=== PATIENT | female | born 1960 | race Caucasian/White ===

== ENCOUNTER 2018-01-11 10:37 | Day surgery (SDC) | payer BC ==
[2018-01-10 09:27] VITALS: BMI 25.7
--- NOTE | 2018-01-10 11:36 | HP ---
Past Medical History - Admission Chief Complaint: Postmenopausal Bleeding. History of Present Illness: 57 year old LMP April 2016 who had sudden onset of bright red heavy bleeding with cramping on January 06, 2018. Due to persistence of bleeding was seen at Urgent care where evaluation revealed a uterus with endometrium of 11 mm. 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 Flow had subsided. Pap smear 05/22/17 negative for malignancy. Pelvic ultrasound performed 05/25/16 for episode of irregular bleeding revealed uterus 8 by 4 by 4 cm. 2.7 cm fibroid left lateral wall of uterus with endometrium normal measuring 5.6 cm. History Source: Patient Limitations to Obtaining History: No Limitations - Past Medical History ...: 3 ...Para: 2 ...Spon : 1 - Past Surgical History Hx Myomectomy: No Hx Transabdominal Cerclage: No - Smoking History Smoking history: Former smoker Have you smoked in the past 12 months: No If you are a former smoker, when did you quit?: YRS AGO - Alcohol/Substance Use Hx Alcohol Use: Yes (SOCIALLY) - Social History Usual Living Arrangement: Yes: With Spouse Home Medications - Allergies Allergies/Adverse Reactions: Allergies Allergy/AdvReac Type Severity Reaction Status Date / Time No Known Drug Allergies Allergy Verified 01/10/18 09:28 - Home Medications Home Medications: Ambulatory Orders Levothyroxine [Synthroid -] 25 mcg PO DAILY 01/10/18 Family Disease History - Family Disease History Family Disease History: Heart Disease: Father Other Family History: Maternal aunt Breast Cancer. 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 Constitutional: Yes: Well Nourished, No Distress, Calm Eyes: Yes: WNL Neck: Yes: WNL, Supple, Trachea Midline Cardiovascular: Yes: WNL, Regular Rate and Rhythm Respiratory: Yes: WNL, Regular, CTA Bilaterally Gastrointestinal: Yes: WNL, Soft Pelvis: Yes: WNL External Genitalia: Yes: Normal Internal Exam Deferred: No Vaginal Exam: Yes: Normal, Bleeding Cervix: Yes: Normal Uterus: Yes: Normal, Freely Moveable, Firm Adnexa: Normal: Bilateral Edema: No Neurological: Yes: WNL Imaging - Results Ultrasound: Report Reviewed (Uterus with endometrium 11 mm.) Assessment/Plan Postmenopausal bleeding Plan: D and C with Hysteroscopy
[2018-01-11] MEDS ORDERED: MIDAZOLAM HCL 2 MG/2 ML SINGLE DOSE VIAL ONE ×2 (12:11)
[2018-01-11] MEDS ORDERED: PROPOFOL 20 ML ONE ×3 (12:11)
[2018-01-11] MEDS ORDERED: KETOROLAC TROMETHAMINE 30 MG/1 ML VIAL ONE (12:40)
[2018-01-11] MEDS ORDERED: oxyCODONE HCL 5 MG TABLET PO PRN (12:44)
[2018-01-11] MEDS ORDERED: ONDANSETRON 4 MG/2 ML VIAL IVPUSH PRN (12:44)
[2018-01-11] MEDS ORDERED: PROMETHAZINE HCL 25 MG/1 ML VIAL IVPB PRN (12:44)
[2018-01-11] MEDS ORDERED: LACTATED RINGERS SOLUTION 1,000 ML IV SCH (12:45)
[2018-01-11] MEDS ORDERED: IBUPROFEN 400 MG TABLET (FP) PO PRN (13:04)
[2018-01-11] MEDS ORDERED: ACETAMINOPHEN 325 MG TABLET (FP) PO PRN (13:04)
--- NOTE | 2018-01-11 13:04 | HP ---
History & Physical Update - History History: No Change - Physical Physical: No Change - Assessment Assessment: No Change - Plan Plan: No Change
--- NOTE | 2018-01-11 13:10 | OP ---
Operative Note - Note: Operative Date: 01/11/18 Pre-Operative Diagnosis: Postmenopausal bleeding Operation: D and C with Hysteroscopy Post-Operative Diagnosis: Other (Cervical stenosis) Anesthesiologist/VASCULAR RADIOLOGIST: Albaro Fraga Anesthesia: General Specimens Removed: Endometrial curettings Operative Report Dictated: Yes
--- NOTE | 2018-01-11 13:57 | OP ---
DATE OF OPERATION: 01/11/2018 PREOPERATIVE DIAGNOSIS: Postmenopausal bleeding. POSTOPERATIVE DIAGNOSIS: 1. Postmenopausal bleeding. 2. Cervical stenosis. SURGEON: Ameya Alexander MD ANESTHESIA: General, Dr. Fraga BLOOD LOSS: 10 mL. DRAINAGE: None. SPECIMEN: Endometrial curetting. DESCRIPTION OF PROCEDURE: Under general anesthesia, patient was placed in the dorsal lithotomy position, prepped and draped in usual sterile manner. A pelvic examination was performed revealing a uterus that was anterior, normal size and shape. Adnexa were negative bilaterally. A weighted speculum was inserted in the vagina. The anterior lip of the cervix was grasped with a sharp tenaculum. The uterus was unable to be sounded due to marked cervical stenosis. With a hysteroscope, the cervical opening was visualized. There was a small opening noted in the right corner of the cervical os. With use of a lacrimal dilator, this opening was then opened to allow a small dilator to be introduced. The hysteroscope was then inserted. The uterine cavity was noted to be intact. The uterine cavity was visualized in entirety. There was no evidence of any polyps or fibroids detected. With these findings noted, the hysteroscope was then removed. The cervical canal was then dilated fully. The uterine cavity was then curetted. Endometrial-type tissue was obtained. Patient tolerated the procedure well, and brought to recovery room in satisfactory condition. AMEYA ALEXANDER M.D. [id number]
[2018-01-11 14:18] VITALS: TEMP 98
[2018-01-11 15:46] VITALS: BP 125/69; PULSE 67
--- NOTE | 2018-01-14 11:37 | PATH ---
Surgical Pathology Report Patient Name: TATUM TERRAZAS Med. Rec. #: [id number] /Age/Gender: 1960 (Age: 57) / F Account: [id number] Location: [facility] Taken: 01/11/2018 Received: 01/11/2018 Reported: 01/14/2018 Physicians: Ameya Wagoner M.D. Specimen(s) Received ENDOMETRIAL CURETTINGS Clinical History Post menopausal bleeding Final Diagnosis ENDOMETRIUM, CURETTING: ENDOMETRIUM WITH STROMAL AND GLANDULAR BREAKDOWN. BENIGN ENDOCERVICAL TISSUE PRESENT. MYOMETRIAL TISSUE IS PRESENT. NO ENDOMETRIAL HYPERPLASIA OR CARCINOMA IDENTIFIED. Comment: Recommend correlation with clinical findings and follow up as clinically indicated. Electronically Signed Colin Mccullough M.D. Gross Description Received in formalin labeled "endometrial curettings" are multiple fragments of red-galicia hemorrhagic soft tissue measuring 2 x 2 x 0.7 cm in aggregate. Entire specimen submitted in one cassette. KJ/01/11/2018 cipriano/01/11/2018
== END 2018-01-11 15:00 | disposition home or self-care (01) ==
LOC: JASU-SURG 10:37
PROVIDERS: ATTEND Obstetrics & Gynecology
PROC: 0UDB8ZX Extraction of Endometrium, Via Natural or Artificial Opening Endoscopic, Diagnostic (ICD-10-PCS; principal; 2018-01-11 12:00)
DX: N95.0 Postmenopausal bleeding (principal); N88.2 Stricture and stenosis of cervix uteri
CPT/HCPCS: 86850; 86900; 86901; 88305-TC; 94760